=== PATIENT | male | born 1975 | race Caucasian/White ===

== ENCOUNTER 2017-01-10 16:34 | Emergency (ER) | payer OTHER ==
--- NOTE | 2017-01-10 18:30 | ED NURSING NOTES ---
Clinical Report - Nurses [facility] [address] [place] [address] 01/10/2017 16:36 Patient: DEBO PEREZ TRIAGE Acuity: LEVEL 4. Chief Complaint: INJURY TO LEFT HAND. INJURY TO THE LEFT INDEX FINGER. Alert. No acute distress. SEPSIS SCREEN: Sepsis Screen. Negative (no infection suspected/documented). LAURI COMA SCORE: [place] Coma Scale: 15- eyes open spontaneously (4); best verbal response- oriented x 4 (5); best motor response- obeys commands (6). --16:55 Elissa Massey R.N. 16:50 01/10/17. BP: 146/86. HR: 94. RR: 16. O2 saturation: 96%. Temp: 97.7 F (oral). Pain level now: 08/29. --16:55 Elissa Massey R.N. Weight: 122.4 kg stated. Height/Length: 70 inches Per Patient. BMI: 38.7. --16:54 Elissa Massey R.N. Medications Atenolol Oral. --16:51 Elissa Massey R.N. Gabapentin Oral. --16:51 Elissa Massey R.N. Ibuprofen Oral. --16:51 Elissa Massey R.N. Allergies No Known Drug Allergy. --16:52 Elissa Massey R.N. History Arrived by private vehicle. Historian: patient. Accompanied by (friend). This occurred just prior to arrival. He sustained a laceration from a sharp edge. PAST MEDICAL HX: Tetanus status: up-to-date. Last tetanus: (1 years ago). SOCIAL HX: Never smoker. Occasional alcohol use. No drug use. FALL RISK ASSESSMENT: Fall risk assessment completed. No fall risk identified. NUTRITIONAL RISK ASSESSMENT: The nutritional risk assessment revealed no deficiencies. FUNCTIONAL ASSESSMENT: Functional assessment: no impairments noted. LEARNING NEEDS ASSESSMENT: The learning needs assessment revealed no barriers. SKIN INTEGRITY ASSESSMENT: Skin integrity risk assessment completed. No skin integrity risk identified. --16:55 Elissa Massey R.N. PROBLEMS: Hypertension. Back Pain. --16:52 Elissa Massey R.N. ADDITIONAL SURGERIES: Back Surgery. Cholecystectomy. Neck Surgery. Shoulder Surgery. --16:52 Elissa Massey R.N. Assessment GENERAL / NEURO / PSYCH: Alert. Oriented X 4. Appears in no acute distress. Patient appears calm and cooperative. RESPIRATORY: Respirations not labored. CVS: Capillary refill less than 2 seconds. GI / : Abdomen soft and nontender. SKIN: Mucous membranes are pink. Skin is warm and dry. --16:55 Elissa Massey R.N. Interventions ID band on patient. To treatment room. Ambulatory. --16:55 Elissa Massey R.N. PHYSICAL ASSESSMENT Ambulatory to room. GENERAL / NEURO / PSYCH: Oriented X 4. Alert. Appears in no acute distress. EXTREMITIES: Capillary refill is less than 2 seconds in the extremities. Extremity pulses are within normal limits. Extremities exhibit normal ROM. Neuro-vascular status intact to the extremity. Left index finger: tenderness and subcutaneous laceration with controlled bleeding. SKIN: Skin is warm and dry. --16:55 Elissa Massey R.N. NURSING PROGRESS NOTES 16:55 01/10/17. Two patient identifiers checked. Call light placed in reach. Bed placed in lowest position. Brakes of bed on. Patient ready for evaluation- chart flagged and ED physician notified. --16:55 Elissa Massey R.N. late entry - 18:35. Applied clean dressing consisting of telfa pad, following the application of antibiotic ointment (bacitracin). Secured with tube gauze. --18:57 Elissa Massey R.N. DISPOSITION / DISCHARGE Departure time: 18:40 Jan 10 2017. Condition at departure: improved and stable. No learning barriers present. Discharge instructions provided and reviewed with the patient. Reviewed wound care instructions. Patient verbalized understanding. Written instructions provided in Sami. The patient was discharged by the physician. He was discharged home and accompanied by nitrogen operator. He left the Emergency Department ambulatory and via private vehicle. Energy Systems Laboratory Director driving. --18:59 Elissa Massey R.N. 18:59 01/10/17. BP: 106/63. HR: 71. RR: 20. O2 saturation: 96% on room air. Temp: 94.3 F (oral). Pain level now: 0/10. --19:00 Elissa Massey R.N. Locked/Released at 01/10/2017 19:00 by Elissa Massey R.N.
--- NOTE | 2017-01-10 18:30 | ED CLINICAL REPORT ---
Clinical Report - Physicians/Mid Levels [facility] [address] [place] [address] 01/10/2017 16:36 Patient: DEBO PEREZ Time Seen: 16:53; initial patient contact. Arrived- By private vehicle. Historian- patient. HISTORY OF PRESENT ILLNESS Chief Complaint: Injury to the left index finger. The injury happened just prior to arrival. Occurred at home. The patient sustained a laceration from a sharp edge. Patient is experiencing mild pain. Patient denies injury to the head or neck. REVIEW OF SYSTEMS The patient sustained a laceration. No tingling, numbness or foreign body. All systems otherwise negative, except as recorded above. PAST HISTORY See nurses notes. The patient's dominant hand is the right. Medications: Ibuprofen Oral. Gabapentin Oral. Atenolol Oral. Allergies: No Known Drug Allergy. SOCIAL HISTORY Never smoker. Occasional alcohol use. No drug use. ADDITIONAL NOTES The nursing notes have been reviewed. PHYSICAL EXAM Vital Signs: 01/10/2017 16:50 BP: 146/86. HR: 94. RR: 16. O2 saturation: 96%. Temp: 97.7 F. Pain level now: 2/10. Have been reviewed. Hypertensive. Heart rate normal. Respiratory rate normal. Temperature normal. Oxygen saturation normal. Skin: Skin warm and dry. Extremities: Left index finger: subcutaneous 3.0 cm laceration of the dorsal aspect. Neurovascular intact distally. No wrist injury. No hand injury. Hand and wrist exam otherwise negative. Extremities otherwise negative. Neuro, Vascular and Tendons: Sensation intact. Motor intact. Neuro: Oriented X 3. No motor deficit. No sensory deficit. PROGRESS AND PROCEDURES Digital Nerve Block - Finger: Per protocol, time-out completed immediately before the procedure. Digital nerve block performed on the left index finger. Volar approach utilized. Landmarks identified. Skin prepped. Total volume of 4 mL 2% Lidocaine and 0.5% Marcaine infiltrated via two punctures using a 27-gauge needle. No complications encountered. Good anesthesia achieved. Laceration Repair: Location: left index finger. Per protocol, time-out completed immediately before the procedure. Length: 4 cm. Complexity: simple (sutured). Wound depth/shape- subcutaneous. Distal neuro/vascular/tendon status normal. Anesthesia provided by digital block using 2% lidocaine. Prepped with Hibiclens. Wound explored, cleansed and examined to the base in bloodless field with normal saline. Closure of skin: 4-0 Prolene (4 sutures). Post-procedure: he is stable and there are no complications. Bleeding is controlled and neuro-vascular status is intact distal to the wound. Dressing applied. Tetanus immunization up-to-date. Estimated blood loss: 3 mL. Disposition: Discharged home in good and improved condition. Condition: good. CLINICAL IMPRESSION Single deep laceration to the left index finger.Treatment of laceration not delayed. No infection, foreign body present or left fingernail injury. INSTRUCTIONS Protect wound and keep wound area clean. Change dressing twice daily. Apply bacitracin twice daily. Sutures/ar should be removed in seven days. Your Current Medications: CONTINUE TAKING THE FOLLOWING MEDICATIONS: Atenolol Oral. Gabapentin Oral. Ibuprofen Oral. Follow-up: Follow up with your doctor in seven days for suture removal. Call for an appointment. Blood pressure screening was not performed during this visit because the patient has an active diagnosis of hypertension. (Electronically signed by Warren Mena Dr. 01/10/2017 22:33)
--- NOTE | 2017-01-10 18:30 | ED CLINICAL REPORT ---
Clinical Report - Physicians/Mid Levels [facility] [address] [place] [address] 01/10/2017 16:36 Patient: DEBO PEREZ Time Seen: 16:53; initial patient contact. Arrived- By private vehicle. Historian- patient. HISTORY OF PRESENT ILLNESS Chief Complaint: Injury to the left index finger. The injury happened just prior to arrival. Occurred at home. The patient sustained a laceration from a sharp edge. Patient is experiencing mild pain. Patient denies injury to the head or neck. REVIEW OF SYSTEMS The patient sustained a laceration. No tingling, numbness or foreign body. All systems otherwise negative, except as recorded above. PAST HISTORY See nurses notes. The patient's dominant hand is the right. Medications: Ibuprofen Oral. Gabapentin Oral. Atenolol Oral. Allergies: No Known Drug Allergy. SOCIAL HISTORY Never smoker. Occasional alcohol use. No drug use. ADDITIONAL NOTES The nursing notes have been reviewed. PHYSICAL EXAM Vital Signs: 01/10/2017 16:50 BP: 146/86. HR: 94. RR: 16. O2 saturation: 96%. Temp: 97.7 F. Pain level now: 2/10. Have been reviewed. Hypertensive. Heart rate normal. Respiratory rate normal. Temperature normal. Oxygen saturation normal. Skin: Skin warm and dry. Extremities: Left index finger: subcutaneous 3.0 cm laceration of the dorsal aspect. Neurovascular intact distally. No wrist injury. No hand injury. Hand and wrist exam otherwise negative. Extremities otherwise negative. Neuro, Vascular and Tendons: Sensation intact. Motor intact. Neuro: Oriented X 3. No motor deficit. No sensory deficit. PROGRESS AND PROCEDURES Digital Nerve Block - Finger: Per protocol, time-out completed immediately before the procedure. Digital nerve block performed on the left index finger. Volar approach utilized. Landmarks identified. Skin prepped. Total volume of 4 mL 2% Lidocaine and 0.5% Marcaine infiltrated via two punctures using a 27-gauge needle. No complications encountered. Good anesthesia achieved. Laceration Repair: Location: left index finger. Per protocol, time-out completed immediately before the procedure. Length: 4 cm. Complexity: simple (sutured). Wound depth/shape- subcutaneous. Distal neuro/vascular/tendon status normal. Anesthesia provided by digital block using 2% lidocaine. Prepped with Hibiclens. Wound explored, cleansed and examined to the base in bloodless field with normal saline. Closure of skin: 4-0 Prolene (4 sutures). Post-procedure: he is stable and there are no complications. Bleeding is controlled and neuro-vascular status is intact distal to the wound. Dressing applied. Tetanus immunization up-to-date. Estimated blood loss: 3 mL. Disposition: Discharged home in good and improved condition. Condition: good. CLINICAL IMPRESSION Single deep laceration to the left index finger.Treatment of laceration not delayed. No infection, foreign body present or left fingernail injury. INSTRUCTIONS Protect wound and keep wound area clean. Change dressing twice daily. Apply bacitracin twice daily. Sutures/ar should be removed in seven days. Your Current Medications: CONTINUE TAKING THE FOLLOWING MEDICATIONS: Atenolol Oral. Gabapentin Oral. Ibuprofen Oral. Follow-up: Follow up with your doctor in seven days for suture removal. Call for an appointment. Blood pressure screening was not performed during this visit because the patient has an active diagnosis of hypertension. (Electronically signed by Warren Mena Dr. 01/10/2017 22:33)
--- NOTE | 2017-01-10 18:30 | ED NURSING NOTES ---
Clinical Report - Nurses [facility] [address] [place] [address] 01/10/2017 16:36 Patient: DEBO PEREZ TRIAGE Acuity: LEVEL 4. Chief Complaint: INJURY TO LEFT HAND. INJURY TO THE LEFT INDEX FINGER. Alert. No acute distress. SEPSIS SCREEN: Sepsis Screen. Negative (no infection suspected/documented). LAURI COMA SCORE: [place] Coma Scale: 15- eyes open spontaneously (4); best verbal response- oriented x 4 (5); best motor response- obeys commands (6). --16:55 Elissa Massey R.N. 16:50 01/10/17. BP: 146/86. HR: 94. RR: 16. O2 saturation: 96%. Temp: 97.7 F (oral). Pain level now: 08/29. --16:55 Elissa Massey R.N. Weight: 122.4 kg stated. Height/Length: 70 inches Per Patient. BMI: 38.7. --16:54 Elissa Massey R.N. Medications Atenolol Oral. --16:51 Elissa Massey R.N. Gabapentin Oral. --16:51 Elissa Massey R.N. Ibuprofen Oral. --16:51 Elissa Massey R.N. Allergies No Known Drug Allergy. --16:52 Elissa Massey R.N. History Arrived by private vehicle. Historian: patient. Accompanied by (friend). This occurred just prior to arrival. He sustained a laceration from a sharp edge. PAST MEDICAL HX: Tetanus status: up-to-date. Last tetanus: (1 years ago). SOCIAL HX: Never smoker. Occasional alcohol use. No drug use. FALL RISK ASSESSMENT: Fall risk assessment completed. No fall risk identified. NUTRITIONAL RISK ASSESSMENT: The nutritional risk assessment revealed no deficiencies. FUNCTIONAL ASSESSMENT: Functional assessment: no impairments noted. LEARNING NEEDS ASSESSMENT: The learning needs assessment revealed no barriers. SKIN INTEGRITY ASSESSMENT: Skin integrity risk assessment completed. No skin integrity risk identified. --16:55 Elissa Massey R.N. PROBLEMS: Hypertension. Back Pain. --16:52 Elissa Massey R.N. ADDITIONAL SURGERIES: Back Surgery. Cholecystectomy. Neck Surgery. Shoulder Surgery. --16:52 Elissa Massey R.N. Assessment GENERAL / NEURO / PSYCH: Alert. Oriented X 4. Appears in no acute distress. Patient appears calm and cooperative. RESPIRATORY: Respirations not labored. CVS: Capillary refill less than 2 seconds. GI / : Abdomen soft and nontender. SKIN: Mucous membranes are pink. Skin is warm and dry. --16:55 Elissa Massey R.N. Interventions ID band on patient. To treatment room. Ambulatory. --16:55 Elissa Massey R.N. PHYSICAL ASSESSMENT Ambulatory to room. GENERAL / NEURO / PSYCH: Oriented X 4. Alert. Appears in no acute distress. EXTREMITIES: Capillary refill is less than 2 seconds in the extremities. Extremity pulses are within normal limits. Extremities exhibit normal ROM. Neuro-vascular status intact to the extremity. Left index finger: tenderness and subcutaneous laceration with controlled bleeding. SKIN: Skin is warm and dry. --16:55 Elissa Massey R.N. NURSING PROGRESS NOTES 16:55 01/10/17. Two patient identifiers checked. Call light placed in reach. Bed placed in lowest position. Brakes of bed on. Patient ready for evaluation- chart flagged and ED physician notified. --16:55 Elissa Massey R.N. late entry - 18:35. Applied clean dressing consisting of telfa pad, following the application of antibiotic ointment (bacitracin). Secured with tube gauze. --18:57 Elissa Massey R.N. DISPOSITION / DISCHARGE Departure time: 18:40 Jan 10 2017. Condition at departure: improved and stable. No learning barriers present. Discharge instructions provided and reviewed with the patient. Reviewed wound care instructions. Patient verbalized understanding. Written instructions provided in Chinese. The patient was discharged by the physician. He was discharged home and accompanied by equipment maintenance supervisor. He left the Emergency Department ambulatory and via private vehicle. Audit Clerks Supervisor driving. --18:59 Elissa Massey R.N. 18:59 01/10/17. BP: 106/63. HR: 71. RR: 20. O2 saturation: 96% on room air. Temp: 94.3 F (oral). Pain level now: 0/10. --19:00 Elissa Massey R.N. Locked/Released at 01/10/2017 19:00 by Elissa Massey R.N.
--- NOTE | 2017-01-10 18:30 | ED ORDER SUMMARY ---
..... Patient: DEBO PEREZ OrderSheet [facility] VisitID: [id number] [address] [place] [place] [address] 41y, M Registration Date/Time: 01/10/2017 ORDER SHEET Weight: 122.4 kg (stated) Allergies: No Known Drug Allergy GENERAL ORDERS: Suture Set-up: (17:01/10/2017 Tavon Tejeda) (17:11 Alison Orta) MEDICATION ORDERS: IV FLUIDS: ORDER SHEET NOTES: [Electronically signed by Elissa Massey R.N. (19:00 01/10/2017)] [Electronically signed by Warren Mena Dr. (22:33 01/10/2017)] [Electronically locked/signed by Elissa Massey R.N. (19:01/10/2017)]
--- NOTE | 2017-01-10 18:30 | ED ORDER SUMMARY ---
..... Patient: DEBO PEREZ OrderSheet [facility] VisitID: [id number] [address] [place] [address] 41y, M Registration Date/Time: 01/10/2017 ORDER SHEET Weight: 122.4 kg (stated) Allergies: No Known Drug Allergy GENERAL ORDERS: Suture Set-up: (17:01/10/2017 Tavon Tejeda) (17:11 Alison Orta) MEDICATION ORDERS: IV FLUIDS: ORDER SHEET NOTES: [Electronically signed by Elissa Massey R.N. (19:00 01/10/2017)] [Electronically signed by Warren Mena Dr. (22:33 01/10/2017)] [Electronically locked/signed by Elissa Msasey R.N. (19:01/10/2017)]
--- NOTE | 2017-01-10 22:33 | ED MAR SUMMARY ---
..... Medication Administration Record [facility] [address] [place] [address] Patient: DEBO PEREZ Visit ID: [id number] 41y, M Weight: 122.4 kg Height/Length: 70 in BMI: 38.7 ALLERGIES: No Known Drug Allergy
--- NOTE | 2017-01-10 22:33 | ED MED RECONCILIATION SUMMARY ---
Patient: DEBO PEREZ Medication Reconciliation Report [facility] VisitID: [id number] [address] [place] [address] 41y, M Registration Date/Time: 01/10/2017 Weight: 122.4 kg Height/Length: 70 in. BMI: 38.7 ALLERGIES: No Known Drug Allergy The patient's Home Medications are listed below: CONTINUE TAKING THE FOLLOWING MEDICATIONS: Atenolol Oral Gabapentin Oral Ibuprofen Oral The source(s) of the original Home Medication information: Not obtained. The following Medications were given to the patient in the Emergency Department: None. The following Medications were prescribed to the patient: None.
--- NOTE | 2017-01-10 22:33 | ED MED RECONCILIATION SUMMARY ---
Patient: DEBO PEREZ Medication Reconciliation Report [facility] VisitID: [id number] [address] [place] [place] [address] 41y, M Registration Date/Time: 01/10/2017 Weight: 122.4 kg Height/Length: 70 in. BMI: 38.7 ALLERGIES: No Known Drug Allergy The patient's Home Medications are listed below: CONTINUE TAKING THE FOLLOWING MEDICATIONS: Atenolol Oral Gabapentin Oral Ibuprofen Oral The source(s) of the original Home Medication information: Not obtained. The following Medications were given to the patient in the Emergency Department: None. The following Medications were prescribed to the patient: None.
--- NOTE | 2017-01-10 22:33 | ED MAR SUMMARY ---
..... Medication Administration Record [facility] [address] [place] [address] Patient: DEBO PEREZ Visit ID: [id number] 41y, M Weight: 122.4 kg Height/Length: 70 in BMI: 38.7 ALLERGIES: No Known Drug Allergy
--- NOTE | 2017-01-10 22:33 | ED DISCHARGE INSTRUCTIONS ---
Patient: DEBO PEREZ General Instructions [facility] VisitID: [id number] [place] [address] 41y, M Registration Date/Time: 01/10/2017 Single deep laceration to the left index finger.Treatment of laceration not delayed. No infection, foreign body present or left fingernail injury. INSTRUCTIONS Protect wound and keep wound area clean. Change dressing twice daily. Apply bacitracin twice daily. Sutures/ar should be removed in seven days. Your Current Medications: CONTINUE TAKING THE FOLLOWING MEDICATIONS: Atenolol Oral. Gabapentin Oral. Ibuprofen Oral. Follow-up: Follow up with your doctor in seven days for suture removal. Call for an appointment. Blood pressure screening was not performed during this visit because the patient has an active diagnosis of hypertension. ADDITIONAL INFORMATION Laceration (All Closures) Alaceration is a cut through the skin. This will usually require stitches (sutures) or ar if it is deep. Minor cuts may be treated with a surgical tape closure orskin glue. Home care The following guidelines will help you care for your laceration at home: Extremity, face, or trunk wounds Keep the wound clean and dry. If a bandage was applied and it becomes wet or dirty, replace it. Otherwise, leave it in place for the first 24 hours. If stitches or ar were used, clean the wound daily. After removing the bandage, wash the area with soap and water. Use a wet cotton swab to loosen and remove any blood or crust that forms. The doctor may prescribe an antibiotic cream or ointment to prevent infection. Do not stop taking this medication until you have finished the prescribed course or the doctor tells you to stop. The doctor may also prescribe medications for pain. Follow the doctors instructions for taking these medications. You may remove the bandage to shower as usual after the first 24 hours, but do not soak the area in water (no swimming) until the stitches or ar are removed. If surgical tape was used, keep the area clean and dry. If it becomes wet, blot it dry with a towel. If skin glue was used, do not scratch, rub, or pick at the adhesive film. Do not place tape directly over the film. Do not apply liquid, ointment, or creams to the wound while the film is in place. Do not clean the wound with peroxide and do not apply ointments. Avoid activities that cause heavy sweating until the film has fallen off. Protect the wound from prolonged exposure to sunlight or tanning lamps. You may shower as usual but do not soak the wound in water (no baths or swimming). The film will fall off by itself in 510 days. Scalp wounds During the first two days, you may carefully rinse your hair in the shower to remove blood, glass or dirt particles. After two days, you may shower and shampoo your hair normally. Do not soak your scalp in the tub or go swimming until the stitches or ar have been removed. Talk with your doctor before applying any antibiotic ointment to the wound. Mouth wounds Eat soft foods to reduce pain. If the cut is inside of your mouth, clean by rinsing after each meal and at bedtime with a mixture of equal parts water and hydrogen peroxide (do not swallow!). Or, you can use a cotton swab to directly apply hydrogen peroxide onto the cut. Mouth wounds can be painful when eating. You may use an [id number] local numbing solution for pain relief. If this is not available, you may use any numbing solution for teething babies. You may apply this directly to the sores with a cotton-tip swab or with your finger. Follow-up care Follow up with your health care provider. Most skin wounds heal within ten days. Mouth and facial wounds heal within five days. However, even with proper treatment, a wound infection may sometimes occur. Therefore, you should check the wound daily for signs of infection listed below. Stitches should be removed from the face within five days; stitches and ar should be removed from other parts of the body within 714 days. If dissolving stitches were used in the mouth, these will fall out or dissolve without the need for removal. If tape closures were used, remove them yourself if they have not fallen off after 7 days. Ifskin glue was used, the film will fall off by itself in 510 days. When to seek medical care Get prompt medical attention if any of these occur: Bleeding not controlled by direct pressure Signs of infection, including increasing pain in the wound, increasing wound redness or swelling, or pus coming from the wound Fever of 100.4F (38C) or higher, or as directed by your health care provider Stitches or ar come apart or fall out or surgical tape falls off before 7 days Wound edges re-open Bandage Change If the bandage becomes wet or dirty, replace it. Otherwise, leave it in place for the first 24 hours. Then once a day: After removing the bandage, wash the area with soap and water. Use a wet cotton swab to loosen and remove any blood or crust that forms on the wound. After cleaning, apply a thin layer of antibiotic ointment or cream. Reapply the bandage. You may shower as usual after the first 24 hours. If the bandage is on an arm or leg, cover it with a plastic bag rubber banded at both ends before showering. No tub baths or swimming until the bandage is removed and the wound healed (at least 7 days). You have been given the following additional information: Laceration, All Dressing Change (Electronically signed by Warren Mena Dr. 01/10/2017 22:33)
== END 2017-01-10 18:40 | disposition home or self-care (01) ==
LOC: ED SRH 16:34
DX: S61.211A Laceration without foreign body of left index finger without damage to nail, initial encounter (principal); W26.9XXA Contact with unspecified sharp object(s), initial encounter; Y93.9 Activity, unspecified; Y99.9 Unspecified external cause status; Y92.009 Unspecified place in unspecified non-institutional (private) residence as the place of occurrence of the external cause; Z79.899 Other long term (current) drug therapy